=== PATIENT | female | born 1955 | race Caucasian/White ===

== ENCOUNTER 2017-07-05 07:11 | Emergency (ER) | payer OTHER ==
--- OUTSIDE RECORDS SUMMARY | 2017-07-05 07:23 | XMS REPORT ---
:1955 External Reference #:[id number] Author Organization [facility] Address [address] [place] [address] Phone [phone] Care Team Providers Name Role Phone Prudencio Mcdaniel MD Care Team Information Hand Assembler For Puller Over Unavailable Prudencio Mcdaniel MD Primary Care Physician Unavailable Payers Type Date Identification Numbers Payment Provider Subscriber Commercial Policy Number: [id number] [employer] Yadi Goldstein PayID: [id number] [address] [place] [address] Problems Date Description Provider Status Onset: 06/23/2015 Allergic rhinitis due to pollen Javi Cramer MD Active Onset: 06/23/2015 Allergic rhinitis Javi Cramer MD Active Onset: 12/28/2016 Uncomplicated moderate ADITYA Ocampo Active persistent asthma Onset: 07/08/2016 Exacerbation of moderate Javi Cramer MD Active persistent asthma Onset: 07/08/2016 Acute bronchitis Javi Cramer MD Active Onset: 06/29/2016 Mild intermittent asthma Jeri Knight RPA-C Active Family History Date Family Member(s) Problem(s) Comments General No Current Problems Social History Type Date Description Comments Smoke-Free Home is smoke-free Smoking Patient has never smoked Allergies, Adverse Reactions, Alerts Date Description Reaction Status Severity Comments 05/23/2014 Codeine Sulfate active Medications Medication Date Status Form Strength Qnty SIG Indications Ordering Provider Nichole OROURKE 01/30 Active Aerosol 230-21mcg 12uni 2 puff Christveler /2017 /Act ts twice a Hay Cramer MD day Albuterol 07/08 Active Nebulizer (2.5mg/3M 90ml 1 vial J45.41 opher Sulfate L) 0.083% every 4h Hay Cramer MD as needed Qnasl 06/29 Active Aerosol 80mcg/Act 1unit [place] 2 J30.1 s puffs Hay Cramer MD into each nostril once daily. Ventolin HFA 10/04 Active Aerosol 108(90Bas 1unit inhale 2 e) s puffs by Hay Cramer MD mcg/Act inhalatio n route every 4 hours as needed Singulair 10/04 Active Tablets 10mg 90tab Take 10mg s by mouth Hay Cramer MD daily at bedtime Levocetirizine 07/13 Active Tablets 5mg 90tab Take one Dihydrochloride s tablet po Hay Cramer MD daily at bedtime. Azelastine HCL 08/29 Active Solution 0.1% 90ml [place] 2 (Nasal) sprays in Hay Cramer MD each nostril by intranasa l route 2 times per day. Sudafed 12 Hour 00/00 Active Tablets ER 120mg take 1 Unknown /0000 12HR tablet (120 mg) by oral route every 12 hours Mucinex 0000 Active Tablets ER 600mg Unknown /0000 12HR Prednisone 07/08 Hx Tablets 5mg 60tab 6 tablets J45.41 s (30 mg) Hay Cramer MD - by mouth 12/28 twice day x 5 days Avelox 07/08 Hx Tablets 400mg 14tab take 1 J45.41 s tab by Hay Cramer MD - mouth 12/28 daily 14 days Symbicort 07/04 Hx Aerosol 160-4.5mc 30.6g 2 puff g/Act m twice a Hay Cramer MD - day 07/08 Fluticasone 12/09 Hx Suspension 50mcg/Act 48gm spray 2 sprays in Hay Cramer MD - each 06/29 nostril daily Ventolin HFA 05/23 Hx Aerosol 108(90Bas inhale 2 e) puffs by - mcg/Act inhalatio 07/04 n route every 4 hours as needed for 99 days Levocetirizine Hx Tablets 5mg 30tab take 1 Christopher Dihydrochloride / s tablet (5 Hay Cramer MD - mg) by 07/04 oral route once daily as needed Singulair Hx Tablets 10mg 90tab take 1 Christopher /0000 s tablet Hay Cramer MD - (10 mg) 07/04 by oral route once daily in the evening Simvastatin Hx Tablets 20mg take 1 Unknown tablet - (20 mg) 06/23 by oral route once daily in the evening Dulera Hx Aerosol 200-5mcg/ 3inha Inhale 2 Christoph Act lers puffs Hay Cramer MD - twice a . Rinse mouth after use. Vital Signs Date Vital Result Comment 06/30/2017 Height 63 inches 5'3" Weight 156.00 lb BMI (Body Mass Index) 27.6 kg/m2 Heart Rate 77 /min Respiratory Rate 18 /min O2 % BldC Oximetry 98 % 12/28/2016 BP Systolic 118 mmHg BP Diastolic 72 mmHg Height 63 inches 5'3" Weight 149.00 lb BMI (Body Mass Index) 26.4 kg/m2 Heart Rate 60 /min Respiratory Rate 14 /min Body Temperature 97.5 F O2 % BldC Oximetry 99 % 07/08/2016 BP Systolic 122 mmHg BP Diastolic 76 mmHg Height 63 inches 5'3" Weight 155.00 lb BMI (Body Mass Index) 27.5 kg/m2 Heart Rate 58 /min Respiratory Rate 12 /min productive cough O2 % BldC Oximetry 99 % 06/29/2016 BP Systolic 120 mmHg BP Diastolic 72 mmHg Height 63 inches 5'3" Weight 160.00 lb BMI (Body Mass Index) 28.3 kg/m2 Heart Rate 74 /min Respiratory Rate 12 /min O2 % BldC Oximetry 99 % 06/23/2015 BP Systolic 110 mmHg BP Diastolic 70 mmHg Height 63.5 inches 5'3.50" Weight 138.00 lb BMI (Body Mass Index) 24.1 kg/m2 Heart Rate 78 /min Respiratory Rate 16 /min 08/28/2014 BP Systolic 125 mmHg BP Diastolic 80 mmHg Heart Rate 72 /min Body Temperature 98.1 F O2 % BldC Oximetry 100 % 06/10/2014 BP Systolic 146 mmHg BP Diastolic 78 mmHg Heart Rate 78 /min 05/23/2014 BP Systolic 136 mmHg BP Diastolic 87 mmHg Height 63.5 inches Weight 160.00 lb Heart Rate 54 /min Results Description No Information Procedures Date CPT Code Description Status 03/22/2017 59891 Allergy Antigens Single Or Multiple Completed 12/28/2016 67533 Nitric Oxide Gas Determination Completed 12/28/2016 11510 Bronchodilation Responsiveness Spirometry Pre/Post Completed Bronchodil Adm 08/05/2016 32281 Allergy Antigens Single Or Multiple Completed 07/08/2016 80177 Nitric Oxide Gas Determination Completed 06/29/2016 93972 Nitric Oxide Gas Determination Completed 06/29/2016 30258 Bronchodilation Responsiveness Spirometry Pre/Post Completed Bronchodil Adm 03/16/2016 76587 Allergy Antigens Single Or Multiple Completed 09/30/2015 98317 Allergy Antigens Single Or Multiple Completed 06/24/2015 40597 Allergy Antigens Single Or Multiple Completed 06/16/2015 11012 Allergy Antigens Single Or Multiple Completed Encounters Type Date Location Provider CPT E/M Dx Office Visit 12/28/2016 8:45a ADITYA Riley 01494 J45.40 J30.1 J30.89 Office Visit 07/08/2016 2:00[place] [address] J45.41 J20.9 Office Visit 06/29/2016 8:45a YANIRA RileyC 54378 J30.1 J30.89 J45.20 Office Visit 06/23/2015 4:00[place] [address] J30.1 J30.89 Plan of Care 12/28/2016 - Jeri Knight RPA-CJ45.40 Moderate persistent asthma, uncomplicatedComments:Asthma has been stable. Today's PFT is within normal limits. Exhaled Nitric Oxide level is slightly elevated at 27ppb. I have discussed the importance of using Dulera - 2 puffs twice a day. Yadi plans to be more diligent about using Dulera as directed. Continue Ventolin as needed for breakthrough asthma symptoms.Follow up:6 months - w/PFT and NIOX prior to [id number] Allergic rhinitis due to pollenComments:Allergic rhinitis well controlled. Continue Qnasl, Azelastine nasal spray, Levocetirizine and Singulair as prescribed. Continue allergy immunotherapy as scheduled.Follow up: 6 months.J30.89 Other allergic rhinitis
[2017-07-05 07:29] VITALS: BP 154/64
--- NOTE | 2017-07-05 07:56 | UC ---
Respiratory Complaint HPI - HPI Summary HPI Summary: PT presents to urgent with report of cough x 3 weeks. Pt states initially thought PND. Pt states saw her assistant broker on Monday who felt was viral but given Rx for prednsione if sx persisted. Pt states starting Monday felt increase fatigue and started to produce mucous - yellow. No blood. No PND. Pt denies fevers, chills + fatigue mild sinus congestion. No ear pain. No sore throat Pt lives with granddaughter - has a col. Pt's has terminal illness - recently discharged from hospital. Pt concern superimposed bacterial infection. States cough feels like getting "deeper" Pt's medications reviewed this visit - History of Current Complaint Chief Complaint: UCRespiratory Stated Complaint: COUGH Time Seen by Provider: 07/05/17 07:28 Hx Obtained From: Patient Hx Last Menstrual Period: ?: No Onset/Duration: Gradual Onset Timing: Constant Severity Initially: Mild Severity Currently: Moderate Character: Cough: Nonproductive - Allergies/Home Medications Allergies/Adverse Reactions: Allergies Allergy/AdvReac Type Severity Reaction Status Date / Time Codeine AdvReac Intermediate Nausea Verified 07/07/15 13:19 environmentsl Allergy Congestion Uncoded 07/07/15 13:19 Home Medications: Home Medications Albuterol 2.5MG/3ML (0.083%)* [Ventolin 2.5 MG/3 ML NEB.JAS*] 2.5 mg INH Q6H PRN 07/05/17 [History Confirmed 07/05/17] Fluticasone-Salmeterol 100-50* [Advair Diskus 100-50*] 2 puff INH BID 07/05/17 [ History Confirmed 07/05/17] LevoCETirizine TAB (NF) [Xyzal TAB (NF)] 5 mg PO QPM 07/05/17 [History Confirmed 07/05/17] Mometasone Furoate (Nasal) [Nasonex] 50 mcg NA BID 07/05/17 [History Confirmed 07/05/17] Pseudoephedrine-Guaifenesin [Mucinex D 60-600 mg] 1 tab PO BID PRN 07/05/17 [ History Confirmed 07/05/17] predniSONE TAB* [Deltasone TAB*] 30 mg PO BID 07/05/17 [History Confirmed ] PMH/Surg Hx/FS Hx/Imm Hx Previously Healthy: Yes - Surgical History Surgical History: Yes Surgery Procedure, Year, and Place: Left wrist surgery age 12. Dental surgery, UTERINE FIBROID ABLATION - Social History Occupation: Employed Full-time - RN at [employer] Lives: With Family Alcohol Use: Occasionally Substance Use Type: None Smoking Status (MU): Never Smoked Tobacco Review of Systems Constitutional: Fatigue Cardiovascular: Chest Pain Gastrointestinal: Negative All Other Systems Reviewed And Are Negative: Yes Physical Exam Triage Information Reviewed: Yes Appearance: Well-Appearing, No Pain Distress, Well-Nourished Vital Signs: Initial Vital Signs Temp 98.7 F 07/05/17 07:20 Pulse 83 07/05/17 07:20 Resp 20 07/05/17 07:20 BP 154/64 07/05/17 07:20 Pulse Ox 98 07/05/17 07:20 Vital Signs Reviewed: Yes Eye Exam: Normal Eyes: Positive: Conjunctiva Clear ENT Exam: Normal ENT: Positive: Normal ENT inspection, Pharynx normal, Pharyngeal erythema, Nasal congestion, Uvula midline. Negative: Sinus tenderness Dental Exam: Normal Neck exam: Normal Neck: Positive: Supple, Nontender, No Lymphadenopathy Respiratory Exam: Normal Respiratory: Positive: Chest non-tender, Lungs clear, Normal breath sounds, No respiratory distress, No accessory muscle use, Other: - peristent cough Cardiovascular Exam: Normal Cardiovascular: Positive: RRR, No Murmur, Pulses Normal Abdominal Exam: Normal Abdomen Description: Positive: Nontender, No Organomegaly, Soft Bowel Sounds: Positive: Present Musculoskeletal Exam: Normal Musculoskeletal: Positive: Strength Intact Neurological Exam: Normal Neurological: Positive: Alert Psychological Exam: Normal Psychological: Positive: Normal Response To Family Skin Exam: Normal UC Diagnostic Evaluation - Laboratory O2 Sat by Pulse Oximetry: 98 Respiratory Course/Dx - Course Course Of Treatment: Pt with persistent, progressive cough x 3 weeks. no with yellow mucous, increased production. pt on prednisone from PCP 30mg BID. Will check cxr. like abx. secretion precaution. increase inhaler/neb Q6hr. hydrate. humidify - Differential Dx/Diagnosis Provider Diagnoses: bronchitis Discharge - Discharge Plan Condition: Stable Disposition: HOME Referrals: Nickolas Cardenas MD [Primary Care Provider] - Additional Instructions: - Stay well hydrated. Drink plenty of non-alcoholic, non-caffinated beverages - take antibiotics as prescribed until gone - After you have been on antibiotics for 2 days - change your toothbrush and your pillowcase. These infections are spread by secretions - do NOT share eating or drinking utensils - clean items you share with other people such as iphone, computer mouse, TV remote, etc - Use inhaler or nebulizer every 6 hours today and tomorrow, and then as needed - Take prednisone as prescribed until gone - Okay to use over the counter medication for cough - you have also been given a treatment for yeast infection - okay to take following your antibiotic if you develop vaginal yeast infection - Contact your doctor or return with questions or concerns
--- NOTE | 2017-07-05 08:26 | RAD ---
INDICATION: Persistent cough COMPARISON: August 09, 2010 TECHNIQUE: PA and lateral dual-energy views were obtained. FINDINGS: Bones/Soft Tissues: There are no acute bony findings. Cardiomediastinal: The cardiomediastinal silhouette is normal. Lungs: There are no infiltrates. Pleura: There are no pleural effusions. Other: None IMPRESSION: NORMAL CHEST
== END 2017-07-05 08:44 | disposition home or self-care (01) ==
LOC: UCCORT 07:11
DX: J40 Bronchitis, not specified as acute or chronic (principal); Z88.5 Allergy status to narcotic agent
CPT/HCPCS: 71046; 99212; G0463

== ENCOUNTER 2018-06-24 08:00 | Emergency (ER) | payer OTHER ==
--- OUTSIDE RECORDS SUMMARY | 2018-06-24 08:07 | XMS REPORT | Continuity of Care Document ---
:1955 External Reference #:[id number] Author Name Aimee Marie Care Team Providers Name Role Phone Nickolas Cardenas MD Care Team Information Squaring Shear Operator Unavailable Nickolas Cardenas MD Primary Care Physician Unavailable Payers Type Date Identification Numbers Payment Provider Subscriber Policy Number: [id number] Marie Goldstein PayID: [id number] [address] [place] [address] Advance Directives Description No Information Available Problems Date Description Provider Status Onset: 06/23/2015 Allergic rhinitis due to pollen Javi Cramer MD Active Onset: 06/23/2015 Allergic rhinitis Javi Cramer MD Active Onset: 06/29/2016 Mild intermittent asthma ADITYA Ocampo Active Onset: 07/08/2016 Acute bronchitis Javi Cramer MD Active Onset: 07/08/2016 Exacerbation of moderate Javi Cramer MD Active persistent asthma Onset: 12/28/2016 Uncomplicated moderate ADITYA Ocampo Active persistent asthma Family History Date Family Member(s) Problem(s) Comments General No Current Problems Social History Type Date Description Comments Sex Unknown Smoke-Free Home is smoke-free Tobacco Use Start: Unknown Patient has never smoked Smoking Status Reviewed: 06/14/18 Patient has never smoked Allergies, Adverse Reactions, Alerts Date Description Reaction Status Severity Comments 05/23/2014 Codeine Sulfate Active Medications Medication Date Status Form Strength Qnty SIG Indications Ordering Provider Nasonex 06/30 Active Suspension 50mcg/Act 51gm [place] 2 J30.1 sprays in Hay Cramer MD each nostril by intranasa l route once daily. Advair HFA 08/14 Active Aerosol 230-21mcg 12uni 2 puff opher /2016 /Act ts twice a Hay Cramer MD day Albuterol 07/08 Active Nebulizer (2.5mg/3M 90ml Inhale 1 J45.41 L) 0.083% vial via Hay Cramer MD nebulizer Q4 hours as needed Ventolin HFA 10/04 Active Aerosol 108(90Bas 1unit inhale 2 e) s puffs by Hay Cramer MD mcg/Act inhalatio n route every 4 hours as needed Singulair 10/04 Active Tablets 10mg 90tab Take 1 s Tablet By Hay Cramer MD Mouth Daily AT Bedtime Levocetirizine 07/13 Active Tablets 5mg 90tab Take 1 Dihydrochloride s Tablet By Hay Cramer MD Mouth Once Daily AT Bedtime Azelastine HCL 08/29 Active Solution 0.1% 90ml [place] 2 (Nasal) sprays in Hay Cramer MD each nostril by intranasa l route 2 times per day. Sudafed 12 Hour Active Tablets ER 120mg take 1 Unknown /0000 12HR tablet (120 mg) by oral route every 12 hours Mucinex Active Tablets ER 600mg Unknown /0000 12HR Aspir-Low Active Tablets DR 81mg 1 by Unknown /0000 mouth every day Calcium + D3 Active Tablets 600-200mg 1 tab PO /0000 -Unit daily Biotin Active Capsules 10mg Unknown /0000 Prednisone 06/30 Hx Tablets 10mg 30tab Take 3 J45.40 s tablets Hay Cramer MD - by mouth 12/26 twice day for 5 days. Take with food. Prednisone 07/08 Hx Tablets 5mg 60tab 6 tablets J45.41 s (30 mg) Hay Cramer MD - by mouth 12/28 twice a day x 5 days Avelox 07/08 Hx Tablets 400mg 14tab take 1 J45.41 s tab by Hay Cramer MD - mouth 12/28 daily for 14 days Symbicort 07/04 Hx Aerosol 160-4.5mc 30.6g 2 puff g/Act m twice a Hay Cramer MD - day 07/08 Qnasl 06/29 Hx Aerosol 80mcg/Act 1unit [place] 2 J30.1 s puffs Hay Cramer MD - into each 06/30 nostril once daily. Fluticasone 12/09 Hx Suspension 50mcg/Act 48gm spray 2 opher sprays in Hay Cramer MD - each 06/29 nostril daily Ventolin HFA 05/23 Hx Aerosol 108(90Bas inhale 2 Unknown e) puffs by - mcg/Act inhalatio 07/04 n route every 4 hours as needed for 99 days Levocetirizine Hx Tablets 5mg 30tab take 1 opher Dihydrochloride / s tablet (5 Hay Cramer [...] Dulera Hx Aerosol 200-5mcg/ 3inha Inhale 2 oph / Act lers puffs Hay Cramer MD - twice a . Rinse mouth after use. Turmeric Hx Capsules 1 Cap 2x Unknown Curcumin /0000 a day PO - 06/14 Immunizations Description No Information Available Vital Signs Date Vital Result Comment 06/14/2018 8:52am BP Systolic 110 mmHg BP Diastolic 62 mmHg Height 63 inches 5'3" Weight 154.00 lb BMI (Body Mass Index) 27.3 kg/m2 Heart Rate 62 /min Respiratory Rate 18 /min O2 % BldC Oximetry 99 % 12/26/2017 8:34am BP Systolic 112 mmHg BP Diastolic 70 mmHg Height 63 inches 5'3" Weight 153.00 lb BMI (Body Mass Index) 27.1 kg/m2 Heart Rate 76 /min Respiratory Rate 16 /min O2 % BldC Oximetry 98 % 06/30/2017 8:44am Height 63 inches 5'3" Weight 156.00 lb BMI (Body Mass Index) 27.6 kg/m2 Heart Rate 77 /min Respiratory Rate 18 /min O2 % BldC Oximetry 98 % 12/28/2016 9:08am BP Systolic 118 mmHg BP Diastolic 72 mmHg Height 63 inches 5'3" Weight 149.00 lb BMI (Body Mass Index) 26.4 kg/m2 Heart Rate 60 /min Respiratory Rate 14 /min Body Temperature 97.5 F O2 % BldC Oximetry 99 % 07/08/2016 1:59pm BP Systolic 122 mmHg BP Diastolic 76 mmHg Height 63 inches 5'3" Weight 155.00 lb BMI (Body Mass Index) 27.5 kg/m2 Heart Rate 58 /min Respiratory Rate 12 /min productive cough O2 % BldC Oximetry 99 % 06/29/2016 8:45am BP Systolic 120 mmHg BP Diastolic 72 mmHg Height 63 inches 5'3" Weight 160.00 lb BMI (Body Mass Index) 28.3 kg/m2 Heart Rate 74 /min Respiratory Rate 12 /min O2 % BldC Oximetry 99 % 06/23/2015 4:30pm BP Systolic 110 mmHg BP Diastolic 70 mmHg Height 63.5 inches 5'3.50" Weight 138.00 lb BMI (Body Mass Index) 24.1 kg/m2 Heart Rate 78 /min Respiratory Rate 16 /min 08/28/2014 12:02pm BP Systolic 125 mmHg BP Diastolic 80 mmHg Heart Rate 72 /min Body Temperature 98.1 F O2 % BldC Oximetry 100 % 06/10/2014 11:07am BP Systolic 146 mmHg BP Diastolic 78 mmHg Heart Rate 78 /min 05/23/2014 8:51am BP Systolic 136 mmHg BP Diastolic 87 mmHg Height 63.5 inches Weight 160.00 lb Heart Rate 54 /min Results Description No Information Available Procedures Date Code Description Status 03/02/2018 78863 Allergy Antigens Single Or Multiple Completed 12/26/2017 61170 Nitric Oxide Gas Determination Completed 12/26/2017 95872 Nitric Oxide Gas Determination Completed 12/26/2017 80516 Bronchodilation Responsiveness Spirometry Pre/Post Completed Bronchodil Adm 12/26/2017 22417 Bronchodilation Responsiveness Spirometry Pre/Post Completed Bronchodil Adm 10/18/2017 38933 Allergy Antigens Single Or Multiple Completed 10/18/2017 70958 Allergy Antigens Mult Dose Vials, Five Insect Venoms Completed 06/30/2017 24119 Nitric Oxide Gas Determination Completed 06/30/2017 05315 Bronchodilation Responsiveness Spirometry Pre/Post Completed Bronchodil Adm 03/22/2017 34337 Allergy Antigens Single Or Multiple Completed 12/28/2016 51684 Bronchodilation Responsiveness Spirometry Pre/Post Completed Bronchodil Adm 12/28/2016 00889 Nitric Oxide Gas Determination Completed 08/05/2016 39338 Allergy Antigens Single Or Multiple Completed 07/08/2016 76330 Nitric Oxide Gas Determination Completed 06/29/2016 76777 Nitric Oxide Gas Determination Completed 06/29/2016 49439 Bronchodilation Responsiveness Spirometry Pre/Post Completed Bronchodil Adm 03/16/2016 78760 Allergy Antigens Single Or Multiple Completed 09/30/2015 59937 Allergy Antigens Single Or Multiple Completed 06/24/2015 41580 Allergy Antigens Single Or Multiple Completed 06/16/2015 13519 Allergy Antigens Single Or Multiple Completed Encounters Type Date Location Provider Dx Diagnosis Office Visit 12/26/2017 TESFAYE Perez J45.40 Moderate persistent 8:30a asthma, uncomplicated J30.1 Allergic rhinitis due to pollen J30.89 Other allergic rhinitis Office Visit 06/30/2017 8:30a Betzy Stacy J45.40 Moderate persistent Fenstermacher, RPA-C asthma, uncomplicated J30.1 Allergic rhinitis due to pollen J30.89 Other allergic rhinitis Office Visit 12/28/2016 8:45a Betzy Brown45.40 Moderate persistent Fenstermacher, RPA-C asthma, uncomplicated J30.1 Allergic rhinitis due to pollen J30.89 Other allergic rhinitis Office Visit 07/08/2016 2:00p Betzy Brown45.41 Moderate persistent MD Shoaib asthma with (acute) exacerbation J20.9 Acute bronchitis, unspecified Office Visit 06/29/2016 8:45a Betzy Stacy Fenstermacher, J30.1 Allergic rhinitis RPA-C due to pollen J30.89 Other allergic rhinitis J45.20 Mild intermittent asthma, uncomplicated Office Visit 06/23/2015 4:00p Stephanie Galeana30.1 Allergic rhinitis MD due to pollen J30.89 Other allergic rhinitis Plan of Treatment 12/26/2017 - TESFAYE ReeseJ45.40 Moderate persistent asthma, uncomplicatedComments:Patient's PFT is within normal range and exhaled nitric oxide is normal at 9 ppb. Patient to continue Advair for prophylaxis of her lungs and Ventolin for breakthrough chest symptoms. Patient to use Nasonex for prophylaxis of her nose and Xyzal for breakthrough nasal symptoms. Patient to use Singulair as prescribed. Patient to try using Azelastine less frequently. Saline nasal rinse may help.Patient to continue allergen immunotherapy.Follow up :6 months, PFT and NIOXJ30.1 Allergic rhinitis due to rffyjuQ56.89 Other allergic rhinitis
[2018-06-24 08:12] VITALS: BP 142/80
--- NOTE | 2018-06-24 08:40 | UC ---
Respiratory Complaint HPI - HPI Summary HPI Summary: Patient is a 62 year old woman , who present today to the urgent care with cough and nasal congestion for past 1 week. Cough is productive of yellow phlegm. 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 Denies any fever, chills,chest pain or shortness of breath . Denies any abdominal pain , nausea or vomiting , diarrhea or constipation. Overall she is feeling better, now gets bouts of dry cough. She has history of asthma and used nebulizer last evening along with the humidifier. She is also using delsun 12 hr. She feels that the cough is really bothersome. - History of Current Complaint Chief Complaint: UCRespiratory Stated Complaint: COUGH Time Seen by Provider: 06/24/18 08:25 Hx Obtained From: Patient Hx Last Menstrual Period: Pain Intensity: 0 - Allergies/Home Medications Allergies/Adverse Reactions: Allergies Allergy/AdvReac Type Severity Reaction Status Date / Time codeine AdvReac Nausea Verified 06/24/18 08:09 environmentsl Allergy Congestion Uncoded 07/07/15 13:19 Home Medications: Home Medications Albuterol 2.5MG/3ML (0.083%)* [Ventolin 2.5 MG/3 ML NEB.JAS*] 2.5 mg INH Q6H PRN 06/24/18 [History Confirmed 06/24/18] Azelastine 0.15% NASAL(NF) [Astepro 0.15% NASAL (NF)] 1 spray NASAL BID [History Confirmed 06/24/18] Beclomethasone Dipropionate [Qnasl] 80 mcg NA DAILY 06/24/18 [History Confirmed 06/24/18] Biotin 5,000 mcg SL DAILY 06/24/18 [History Confirmed 06/24/18] Dextromethorphan Polistirex [Delsym] 30 mg PO BID PRN 06/24/18 [History Confirmed 06/24/18] Fluticas/Salmet 230/21 HFA(NF) [Advair HFA 23O/21 (NF)] 1 puff INH BID 06/24/18 [History Confirmed 06/24/18] Ibuprofen TAB* [Motrin TAB* 600 MG] 600 mg PO Q6H PRN 06/24/18 [History Confirmed 06/24/18] Magnesium Oxide TAB* [MagOx 400 TAB*] 400 mg PO DAILY 06/24/18 [History Confirmed 06/24/18] Montelukast Sodium TAB* [Singulair TAB*] 10 mg PO DAILY 06/24/18 [History Confirmed 06/24/18] PMH/Surg Hx/FS Hx/Imm Hx - Additional Past Medical History Additional PMH: Asthma on inhalers Environmental allergies Arthritis Previously Healthy: Yes - Surgical History Surgical History: Yes Surgery Procedure, Year, and Place: Left wrist surgery age 12. Dental surgery, UTERINE FIBROID ABLATION - Social History Alcohol Use: Rare Substance Use Type: None Smoking Status (MU): Never Smoked Tobacco Review of Systems All Other Systems Reviewed And Are Negative: Yes Constitutional: Positive: Negative Skin: Positive: Negative Eyes: Positive: Negative ENT: Positive: Nasal Discharge, Other - congestion Respiratory: Positive: Cough - initially was productive , now dry Cardiovascular: Positive: Negative Gastrointestinal: Positive: Negative Genitourinary: Positive: Negative Motor: Positive: Negative Neurovascular: Positive: Negative Musculoskeletal: Positive: Negative Neurological: Positive: Negative Psychological: Positive: Negative Is Patient Immunocompromised?: No Physical Exam - Summary Physical Exam Summary: Physical Exam: Const: Appears well. No signs of apparent distress present. Alert and oriented x 3. Musculo: Walks with a normal gait. Head/Face: Atraumatic, normocephalic on inspection. Eyes: EOMI and PERRLA in both eyes. Conjunctivae clear. No discharge noted ENT: Hearing normal, TM normal appearing bilaterally . mild pharyngeal erythema, no exudates no cervical or submandibular lymphadenopathy Respiratory: Respirations are unlabored. Lungs clear to auscultation bilaterally, no wheezing , rhonchi or rales noted . CVS: Regular rate and Rhythm, S1S2 normal , no murmurs identified. Extremities: Peripheral circulation is grossly normal. Pulses 2+ Abdomen : Soft non tender , nondistended , Bowel sounds present . Skin: No lesions or rash located on the upper extremities or on the lower extremities. Neuro: Cranial nerves II to XII intact, motor and sensory intact. DTR Intact bilaterally. Mood is normal. Affect is normal. Triage Information Reviewed: Yes Vital Signs: Initial Vital Signs Temp 98.2 F 06/24/18 08:08 Pulse 75 06/24/18 08:08 Resp 14 06/24/18 08:08 BP 142/80 06/24/18 08:08 Pulse Ox 100 06/24/18 08:08 Vital Signs Reviewed: Yes UC Diagnostic Evaluation - Laboratory O2 Sat by Pulse Oximetry: 100 Respiratory Course/Dx - Course Course Of Treatment: During the visit today, we discussed the findings which appear to be consistent with resolving viral upper respiratory infection. I will prescribe the medication to control her cough to the pharmacy . Also discussed to start salt water gargles, throat lozenges. She had reported allergy to codeine but she tells that it can upset her stomach, no rash or anaphyllaxis. Patient expressed understanding . - Differential Dx/Diagnosis Provider Diagnosis: Viral URI with cough Discharge - Sign-Out/Discharge Documenting (check all that apply): Patient Departure All imaging exams completed and their final reports reviewed: No Studies - Discharge Plan Condition: Stable Disposition: HOME Prescriptions: Benzonatate CAP* [Tessalon 100 MG CAP*] 100 mg PO TID PRN 10 Days #30 cap PRN Reason: Cough Codeine Phosphate/Guaifenesin [Guaifen-Codeine 100-10 mg/5 ml] 5 ml PO Q8HR 5 Days #1 btl MDD 15 ml Patient Education Materials: Viral Syndrome (ED) Referrals: Nickolas Cardenas MD [Primary Care Provider] - 1 Week Additional Instructions: Please start taking the medication as prescribed to the pharmacy for cough . Follow up with your primary care doctor in 1 week Patients blood pressure slightly high in Urgent care today , plan follow up with PCP for better control Return to Urgent care / ER if symptoms get worse. - Billing Disposition and Condition Condition: STABLE Disposition: Home
== END 2018-06-24 09:02 | disposition home or self-care (01) ==
LOC: UCCORT 08:00
DX: J06.9 Acute upper respiratory infection, unspecified (principal); R05 Cough; Z88.5 Allergy status to narcotic agent; J45.909 Unspecified asthma, uncomplicated; M19.91 Primary osteoarthritis, unspecified site
CPT/HCPCS: 99212; G0463

== ENCOUNTER 2018-08-13 07:46 | Emergency (ER) | payer OTHER ==
[2018-08-13 08:06] VITALS: BP 133/64
[2018-08-13] MEDS ORDERED: Albuterol/Ipratropium NEB.SOL* Albuterol 2.5 MG/Ipratropium 0.5 MG 3 ML INH ONE (08:35)
--- NOTE | 2018-08-13 08:37 | UC ---
UC General HPI - HPI Summary HPI Summary: ILL X 6 DAYS. BEGAN COUGH WITH CONGESTION THAT IS NOW WORSE. BODYACHES AND FEVER SINCE MONDAY. + SOB. HX ASTHMA. NO CP. - History of Current Complaint Chief Complaint: UCRespiratory Stated Complaint: COUGH,ACHES,FREY,CHEST CONGESTION Time Seen by Provider: 08/13/18 08:30 Hx Obtained From: Patient Hx Last Menstrual Period: Onset/Duration: Gradual Onset Timing: Constant Pain Intensity: 5 Associated Signs & Symptoms: Positive: Cough, Fever, SOB, Wheezing. Negative: Chest Pain - Allergy/Home Medications Allergies/Adverse Reactions: Allergies Allergy/AdvReac Type Severity Reaction Status Date / Time codeine AdvReac Nausea Verified 08/13/18 08:02 environmentsl Allergy Congestion Uncoded 08/13/18 08:02 Home Medications: Home Medications Albuterol 2.5MG/3ML (0.083%)* [Ventolin 2.5 MG/3 ML NEB.JAS*] 2.5 mg INH Q4H [History Confirmed 08/13/18] Pseudoephedrine HCL ER TAB* [Sudafed 12 Hour*] 1 tab PO BID 08/13/18 [History Confirmed 08/13/18] PMH/Surg Hx/FS Hx/Imm Hx Respiratory History: Asthma - Surgical History Surgical History: Yes Surgery Procedure, Year, and Place: Left wrist surgery age 12. Dental surgery, UTERINE FIBROID ABLATION - Family History Known Family History: Positive: Non-Contributory - Social History Alcohol Use: Rare Substance Use Type: None Smoking Status (MU): Never Smoked Tobacco - Immunization History Vaccination Up to Date: Yes Review of Systems All Other Systems Reviewed And Are Negative: Yes Constitutional: Positive: Fever, Chills Skin: Positive: Negative Eyes: Positive: Negative ENT: Positive: Negative Respiratory: Positive: Shortness Of Breath, Cough Cardiovascular: Positive: Negative Gastrointestinal: Positive: Negative Genitourinary: Positive: Negative Motor: Positive: Negative Neurovascular: Positive: Negative Musculoskeletal: Positive: Myalgia Neurological: Positive: Negative Psychological: Positive: Negative Physical Exam Triage Information Reviewed: Yes Appearance: Ill-Appearing - BUT NON TOXIC Vital Signs: Initial Vital Signs Temp 99.4 F 08/13/18 08:02 Pulse 90 08/13/18 08:02 Resp 18 08/13/18 08:02 BP 133/64 08/13/18 08:02 Pulse Ox 100 08/13/18 08:02 Vital Signs Reviewed: Yes Eyes: Positive: Conjunctiva Clear ENT: Positive: Pharyngeal erythema, TMs normal. Negative: Nasal congestion, Nasal drainage Neck: Positive: Supple, Nontender, No Lymphadenopathy Respiratory: Positive: No respiratory distress, Decreased breath sounds, Other: - COARSE RHONCHI R LUNG. FREQUENT CONGESTED-BRONCHOSPASTIC COUGH Cardiovascular: Positive: RRR, No Murmur Abdomen Description: Positive: Nontender, No Organomegaly, Soft Bowel Sounds: Positive: Present Musculoskeletal: Positive: ROM Intact Neurological: Positive: Alert Psychological: Positive: Age Appropriate Behavior Skin Exam: Normal Diagnostics - Laboratory Diagnostic Studies Completed/Ordered: influenza a+ - Radiology No standard instances Radiology Interpretation Completed By: Radiologist - cxr IMPRESSION: Findings consistent with right lower lobe pneumonia. Re-Evaluation - Re-Evaluation First Eval Re-Evaluation Time: 09:10 Change: Improved - BETTER AERATION. RHONCHI CLEARED. Course/Dx - Course Course Of Treatment: NON TOXIC, NOT HYPOXIC. APPROPRIATE FOR OUT PT TX. - Differential Dx - Multi-Symptom Differential Diagnoses: Other - asthma, pneumonia, influenza, brinchitis, viral syndrom - Diagnoses Provider Diagnosis: Asthma, Influenza A, Pneumonia Discharge - Sign-Out/Discharge Documenting (check all that apply): Patient Departure All imaging exams completed and their final reports reviewed: Yes - Discharge Plan Condition: Stable Disposition: HOME Prescriptions: DOXYcycline CAP(*) [DOXYcycline 100MG CAP(*)] 100 mg PO BID 10 Days #20 cap Oseltamivir CAP* [Tamiflu CAP*] 75 mg PO BID 5 Days #10 cap predniSONE [Prednisone 20 MG TAB] 40 mg PO DAILY 5 Days #10 tablet Patient Education Materials: Influenza (DC), Pneumonia (ED) Forms: *Work Release Referrals: Nickolas Cardenas MD [Primary Care Provider] - 4 Days Additional Instructions: USE YOUR ALBUTEROL EVERY 6 HOURS GO TO THE ER FOR ANY WORSENING - Billing Disposition and Condition Condition: STABLE Disposition: Home - Attestation Statements Provider Attestation: Per institutional requirements, I have reviewed the chart, however, I was not consulted specifically or made aware of this patient by the midlevel provider. I did not personally evaluate, interact with , or disposition this patient.
[2018-08-13 09:03] LABS: Influenza A Molecular POSITIVE (Negative)
== END 2018-08-13 09:27 | disposition home or self-care (01) ==
LOC: UCCORT 07:46
DX: J10.00 Influenza due to other identified influenza virus with unspecified type of pneumonia (principal); J45.909 Unspecified asthma, uncomplicated; Z88.5 Allergy status to narcotic agent; Z91.09 Other allergy status, other than to drugs and biological substances
CPT/HCPCS: 71046; 99212; A9270-GY; G0463